=== PATIENT | male | born 1975 | race Caucasian/White ===

== ENCOUNTER 2019-12-24 20:08 | Inpatient (IN) | payer MEDICARE, OTHER ==
[~2019-12-24] VITALS: Ht 177.8 cm; Wt 63.8 kg
[~2019-12-24 20:08] MED LIST: BENZ2TAB5 PO; CRESTOR5 MG PO; HALO100A2 IM
[2019-12-24] MEDS ORDERED: IV NORMAL SALINE 1,000ML 1,000 ML IV SCH (20:14)
[2019-12-24 21:07] LABS: BASO % 0 % (0-3); EOS % 0 % (0-3); HEMATOCRIT 42.1 % (39.0-53.0); HEMOGLOBIN 14.2 g/dL (13.0-17.5); LYMPH # 1.1 x10^3/uL (1.0-4.8); LYMPH % 17 % (24-48); MEAN CORPUSCULAR HEMOGLOBIN 30 pg (25-35); MEAN CORPUSCULAR HGB CONC 34 g/dL (31-37); MEAN CORPUSCULAR VOLUME 90 fL (79-100); MONO # 0.6 x10^3/uL (0.0-1.1); MONO % 9 % (0-9); NEUT # 4.7 x10^3uL (1.8-7.7); NEUT % 73 % (31-73); PLATELET COUNT 71 x10^3/uL (140-400); RED BLOOD COUNT 4.69 x10^6/uL (4.30-5.70); WHITE BLOOD COUNT 6.4 x10^3/uL (4.0-11.0)
[2019-12-24] MEDS ORDERED: DEXTROSE 50% 25 GM / 50ML DISP.SYRIN. IV ONE ×2 (21:18→21:30)
[2019-12-24 21:20] LABS: CREATININE 0.9 mg/dL (0.7-1.3); GFR 91.7; POTASSIUM 3.6 mmol/L (3.5-5.1)
[2019-12-24 21:22] LABS: ALBUMIN 3.7 g/dL (3.4-5.0); DIRECT BILIRUBIN 0.1 mg/dL (0.0-0.2); MAGNESIUM 1.8 mg/dL (1.8-2.4); TOTAL BILIRUBIN 0.2 mg/dL (0.2-1.0); TOTAL PROTEIN 6.8 g/dL (6.4-8.2)
--- NOTE | 2019-12-24 22:23 | PHYS DOC ---
Past History Past Medical History: Schizophrenia, Other Additional Past Medical Histor: HISTOPLASMOSIS Past Surgical History: No Surgical History Additional Smoking Information: CIGARS, VAPES Alcohol Use: None Drug Use: Methamphetamine General Adult EDM: Chief Complaint: ACCIDENTAL INGESTION HPI: HPI: Patient is a [age] year old [sex] who presents with [] Review of Systems: Review of Systems: Constitutional: Denies fever or chills Eyes: Denies change in visual acuity HENT: Denies nasal congestion or sore throat Respiratory: Denies cough or shortness of breath Cardiovascular: Denies chest pain or edema GI: Denies abdominal pain, nausea, vomiting, bloody stools or diarrhea : Denies dysuria Musculoskeletal: Denies back pain or joint pain Integument: Denies rash Neurologic: Denies headache, focal weakness or sensory changes Endocrine: Denies polyuria or polydipsia Lymphatic: Denies swollen glands Psychiatric: Denies depression or anxiety Heart Score: Risk Factors: Risk Factors: DM, Current or recent (<one month) smoker, HTN, HLP, family history of CAD, obesity. Risk Scores: Score 0 - 3: 2.5% MACE over next 6 weeks - Discharge Home Score 4 - 6: 20.3% MACE over next 6 weeks - Admit for Clinical Observation Score 7 - 10: 72.7% MACE over next 6 weeks - Early Invasive Strategies Current Medications: Current Meds: Current Medications Medications (Trade) Dose Ordered Sig/[facility] Start Time Stop Time Status Last Admin Dose Admin Dextrose (Dextrose 50%-Water Syringe) 25 gm 1X ONCE 12/24/19 21:30 12/24/19 21:35 DC 12/24/19 21:20 25 GM Sodium Chloride 1,000 ml @ 1,000 mls/hr Q1H 12/24/19 20:14 12/24/19 21:13 DC 12/24/19 21:26 1,000 MLS/HR Allergies: Allergies: Allergies Coded Allergies Type Severity Reaction Last Updated Verified No Known Drug Allergies 03/03/16 No Physical Exam: PE: Constitutional: Well developed, well nourished, no acute distress, non-toxic appearance. [] HENT: Normocephalic, atraumatic, bilateral external ears normal, oropharynx moist, no oral exudates, nose normal. [] Eyes: PERRLA, EOMI, conjunctiva normal, no discharge. [] Neck: Normal range of motion, no tenderness, supple, no stridor. [] Cardiovascular:Heart rate regular rhythm, no murmur [] Lungs & Thorax: Bilateral breath sounds clear to auscultation [] Abdomen: Bowel sounds normal, soft, no tenderness, no masses, no pulsatile masses. [] Skin: Warm, dry, no erythema, no rash. [] Back: No tenderness, no CVA tenderness. [] Extremities: No tenderness, no cyanosis, no clubbing, ROM intact, no edema. [] Neurologic: Alert and oriented X 3, normal motor function, normal sensory function, no focal deficits noted. [] Psychologic: Affect normal, judgement normal, mood normal. [] Current Patient Data: Labs: Laboratory Tests Test 12/24/19 20:18 12/24/19 20:50 12/24/19 21:16 12/24/19 22:12 Glucose (Fingerstick) 163 mg/dL (70-99) H 47 mg/dL (70-99) L 108 mg/dL (70-99) H White Blood Count 6.4 x10^3/uL (4.0-11.0) Red Blood Count 4.69 x10^6/uL (4.30-5.70) Hemoglobin 14.2 g/dL (13.0-17.5) Hematocrit 42.1 % (39.0-53.0) Mean Corpuscular Volume 90 fL (79-100) Mean Corpuscular Hemoglobin 30 pg (25-35) Mean Corpuscular Hemoglobin Concent 34 g/dL (31-37) Red Cell Distribution Width 14.0 % (11.5-14.5) Platelet Count 71 x10^3/uL (140-400) L Neutrophils (%) (Auto) 73 % (31-73) Lymphocytes (%) (Auto) 17 % (24-48) L Monocytes (%) (Auto) 9 % (0-9) Eosinophils (%) (Auto) 0 % (0-3) Basophils (%) (Auto) 0 % (0-3) Neutrophils # (Auto) 4.7 x10^3uL (1.8-7.7) Lymphocytes # (Auto) 1.1 x10^3/uL (1.0-4.8) Monocytes # (Auto) 0.6 x10^3/uL (0.0-1.1) Eosinophils # (Auto) 0.0 x10^3/uL (0.0-0.7) Basophils # (Auto) 0.0 x10^3/uL (0.0-0.2) Sodium Level 138 mmol/L (136-145) Potassium Level 3.6 mmol/L (3.5-5.1) Chloride Level 101 mmol/L (98-107) Carbon Dioxide Level 28 mmol/L (21-32) Anion Gap 9 (6-14) Blood Urea Nitrogen 10 mg/dL (8-26) Creatinine 0.9 mg/dL (0.7-1.3) Estimated GFR (Cockcroft-Gault) 91.7 Glucose Level 82 mg/dL (70-99) Calcium Level 9.0 mg/dL (8.5-10.1) Magnesium Level 1.8 mg/dL (1.8-2.4) Total Bilirubin 0.2 mg/dL (0.2-1.0) Direct Bilirubin 0.1 mg/dL (0.0-0.2) Aspartate Amino Transferase (AST) 22 U/L (15-37) Alanine Aminotransferase (ALT) 34 U/L (16-63) Alkaline Phosphatase 88 U/L (46-116) Total Protein 6.8 g/dL (6.4-8.2) Albumin 3.7 g/dL (3.4-5.0) Ethyl Alcohol Level < 10 mg/dL (0-10) Vital Signs: Vital Signs Date Time Temp Pulse Resp B/P (MAP) Pulse Ox O2 Delivery O2 Flow Rate FiO2 12/24/19 21:41 65 20 124/63 (83) 97 Room Air 12/24/19 20:10 97.8 EKG: EKG: [] Radiology/Procedures: Radiology/Procedures: [] Course & Med Decision Making: Course & Med Decision Making Pertinent Labs and Imaging studies reviewed. (See chart for details) [] Dragon Disclaimer: Dragon Disclaimer: This electronic medical record was generated, in whole or in part, using a voice recognition dictation system. Departure Departure: Impression: Primary Impression: Hypoglycemia Additional Impression: Accidental overdose Qualified Codes: T50.901A - Poisoning by unspecified drugs, medicaments and biological substances, accidental (unintentional), initial encounter Disposition: ADMITTED INPATIENT Admitting Physician: Patrice Delatorre Condition: IMPROVED Referrals: MARIAH FUCHS (PCP) DULCE DERAS Jr. DO December 24, 2019 22:23
[2019-12-24 22:35] LABS: BILIRUBIN,URINE NEG (NEG); CLARITY,URINE CLEAR; COLOR,URINE YELLOW; GLUCOSE,URINE NEG (NEG); NITRITE,URINE NEG (NEG); UROBILINOGEN,URINE 0.2 mg/dL (0.2 mg/dL)
[2019-12-24 22:36] LABS: BACTERIA,URINE 0 /HPF (0-FEW); RBC,URINE OCC /HPF (0-2); SQUAMOUS EPITHELIAL CELL,UR OCC /LPF; WBC,URINE OCC /HPF (0-4)
[2019-12-24] MEDS ORDERED: IV DEXTROSE 5% - 0.9 % NACL 1,000 ML IV ONE (22:45)
[2019-12-24 23:00] VITALS: BP 143/92
[2019-12-25] MEDS ORDERED: ITRA100C PO (00:11)
[2019-12-25] MEDS ORDERED: LISI10TA2 PO (00:11)
[2019-12-25] MEDS ORDERED: ROSU20TA28 PO (00:11)
[2019-12-25] MEDS ORDERED: DEXTROSE 50% 25 GM / 50ML DISP.SYRIN. IV ONE ×4 (03:04→05:27)
[2019-12-25 06:12] VITALS: BP 137/67
[2019-12-25 06:43] LABS: BASO % 1 % (0-3); EOS % 1 % (0-3); HEMATOCRIT 38.5 % (39.0-53.0); HEMOGLOBIN 12.9 g/dL (13.0-17.5); LYMPH # 0.9 x10^3/uL (1.0-4.8); LYMPH % 29 % (24-48); MEAN CORPUSCULAR HEMOGLOBIN 30 pg (25-35); MEAN CORPUSCULAR HGB CONC 34 g/dL (31-37); MEAN CORPUSCULAR VOLUME 90 fL (79-100); MONO # 0.4 x10^3/uL (0.0-1.1); MONO % 11 % (0-9); NEUT # 1.9 x10^3uL (1.8-7.7); NEUT % 59 % (31-73); PLATELET COUNT 56 x10^3/uL (140-400); RED BLOOD COUNT 4.28 x10^6/uL (4.30-5.70); RED CELL DISTRIBUTION WIDTH 13.6 % (11.5-14.5); WHITE BLOOD COUNT 3.3 x10^3/uL (4.0-11.0)
[2019-12-25 06:47] LABS: CALCIUM 8.6 mg/dL (8.5-10.1); CREATININE 0.8 mg/dL (0.7-1.3); POTASSIUM 3.8 mmol/L (3.5-5.1)
[2019-12-25] MEDS ORDERED: IV DEXTROSE 5 %-0.45 % NACL 1,000 ML IV SCH (08:30)
[2019-12-25] MEDS: DEXTROSE 50% 25 GM / 50ML DISP.SYRIN. IV PRN ×2 (08:49→11:15)
[2019-12-25 12:35] VITALS: BP 120/72
--- NOTE | 2019-12-25 12:45 | HP ---
ADMIT DATE: 12/25/2019 HISTORY OF PRESENT ILLNESS: The patient is a 44-year-old male patient who was brought to the Emergency Room as he accidentally ingested his father's medication that consists of metformin 1000 mg 1 tablet and 3 tablets of glipizide, each is 5 mg total 15 mg as well as Neurontin and apparently by the time he arrived to the Emergency Room, he developed hypoglycemia and was started on D5 normal saline at 100 mL per hour, was admitted to the ICU for close observation. The patient himself seems to be alert, oriented 3. PAST MEDICAL HISTORY: Significant for schizophrenia, histoplasmosis and drug-induced Parkinson's disease. Apparently, he was diagnosed with histoplasmosis about 14 years ago for which she was started on itraconazole and apparently relapsed twice. PAST SURGICAL HISTORY: Significant for brain biopsy as initially the patient's daughter has a brain tumor, but eventually was diagnosed with histoplasmosis. He has multiple lumbar punctures to monitor the response to the antibiotic. ALLERGIES: Medically, he is also known to have hypertension and hyperlipidemia. ALLERGIES: He has no known drug allergies. MEDICATIONS: He is currently on following medications, itraconazole 100 mg p.o. b.i.d., Crestor 20 mg at bedtime, lisinopril 10 mg once a day, haloperidol decanoate 100 mg per 1 mL, intramuscular once a month, benztropine mesylate 2 mg twice a day. FAMILY HISTORY: He has 3 brothers, all healthy. His father is still alive and has type 2 diabetes and also was exposed to Agent [place] in [place]. Mother is still alive and has major depression. SOCIAL HISTORY: He is single. He lives with his father who is also his guardian. He does smoke cigars and vaping, and he does occasionally drinks beer with his father. He has no children and has never been before. He walks without the assistance or assistive devices. PHYSICAL EXAMINATION: GENERAL: On arrival to the Emergency Room, he looked well and was clearly in no apparent respiratory distress. No pallor, jaundice, cyanosis or thyromegaly. No jugular venous distention. No lower limb edema. VITAL SIGNS: Her heart rate was 69, blood pressure was 160/87, temperature was 97.8, respiratory rate 20, and oxygen saturation was 100%. HEAD, EYES, EARS, NOSE AND THROAT: Showed normocephalic, atraumatic. NECK: Supple. HEART: Showed normal first and second heart sounds. No gallop, rub or murmur. CHEST: Clear to auscultation. No crepitation or rhonchi. ABDOMEN: Scaphoid, soft, nontender. NEUROLOGIC: He was awake, alert, responding appropriately. All cranial nerves intact. EXTREMITIES: He moves extremities without difficulty. He apparently ambulates without assistance or assistive devices, although he has abnormal gait. His father said that he was diagnosed with drug-induced Parkinson's disease by his urologist that he follows at [facility] and they actually have cut down his Haldol instead of 100 to 75 mg. LABORATORY DATA: On arrival, his white cell count was 6400, hemoglobin was 14, hematocrit 42, MCV 90 and platelet count of 71,000. His chemistry showed his serum sodium was 138, potassium 3.6, chloride 101, bicarbonate 28, anion gap of 9, BUN 10, creatinine 0.9, estimated GFR was 92 mL per minute. His glucose was 82, calcium was 9, magnesium was 1.8. Total bilirubin, AST, ALT, alkaline phosphatase were normal. His urinalysis was essentially unremarkable. The urine was yellow, clear with a pH of 7, specific gravity of 1.015. The urine otherwise is negative. His toxic screen was negative. ASSESSMENT AND PLAN: In summary, this is a 44-year-old male patient who was admitted with accidental overdose of 50 mg of glipizide and 1000 mg of metformin and gabapentin. He developed hypoglycemia. He continued to have blood sugar drop down and therefore we continued D5 half normal. I spoke with the pharmacist and I will start him also on octreotide 50 mcg IV subcutaneously every 6 hours. We will continue to monitor his blood sugar closely and once his blood sugar stabilized, he can be discharged home. RACHEL MORROW MD DR: GUSTAVO/eleuterio JOB#: [id number] / [id number]
[2019-12-25] MEDS ORDERED: POTASSIUM CLORIDE PO (12:56)
[2019-12-25] MEDS ORDERED: ONDANSETRON PF 4 MG/2 ML VIAL. IVP PRN (13:00)
[2019-12-25] MEDS: IV DEXTROSE 10% 1,000 ML IV SCH (13:04)
[2019-12-25] MEDS: OCTREOTIDE 100 MCG/ML VIAL SQ SCH ×2 (13:05→18:54)
[2019-12-25 14:38] VITALS: BP 133/76
[2019-12-25 18:36] VITALS: BP 136/77
[2019-12-26] VITALS: BP 136/74
[2019-12-26] MEDS: IV DEXTROSE 10% 1,000 ML IV SCH ×2 (00:05→13:12)
[2019-12-26] MEDS: OCTREOTIDE 100 MCG/ML VIAL SQ SCH ×3 (00:05→13:14)
[2019-12-26 06:13] LABS: HEMATOCRIT 38.4 % (39.0-53.0); RED BLOOD COUNT 4.28 x10^6/uL (4.30-5.70); WHITE BLOOD COUNT 3.7 x10^3/uL (4.0-11.0)
[2019-12-26 06:22] LABS: ALBUMIN 3.2 g/dL (3.4-5.0); ALBUMIN/GLOBULIN RATIO 1.1 (1.0-1.7); CALCIUM 8.5 mg/dL (8.5-10.1); GFR 81.2; POTASSIUM 4.4 mmol/L (3.5-5.1); TOTAL BILIRUBIN 0.2 mg/dL (0.2-1.0)
[2019-12-26 10:00] VITALS: BP 108/70
[2019-12-26 11:30] VITALS: BP 129/69
[2019-12-26 17:20] VITALS: BP 151/89
[2019-12-26] MEDS ORDERED: IV DEXTROSE 10% 1,000 ML IV SCH (18:30)
[2019-12-26 20:09] VITALS: BP 157/87
[2019-12-26 22:07] VITALS: BP 141/91
--- NOTE | 2019-12-27 00:14 | PN ---
DATE: SUBJECTIVE: The patient is resting, slightly propped up, sleeping comfortably, in no apparent distress. On questioning him, he denied any complaint. Nursing staff did not voice any concern and stated that he has an uneventful night. His blood sugar seems to be stable. Has had no further episodes of hypoglycemia; however, he continued to be on D10 at 75 mL as well as octreotide. So, I will try and wean him off both of these and see if his blood sugar remains stable. PHYSICAL EXAMINATION: GENERAL: When I examined him this afternoon, he looked well, not jaundiced, cyanosis, or thyromegaly. No jugular venous distension. No limb edema. VITAL SIGNS: His heart rate was 82, blood pressure was 108/70, temperature was 98.3, respiratory rate was 16, and oxygen saturation was 100%. HEAD, EYES, EARS, NOSE AND THROAT: Normocephalic and atraumatic. NECK: Supple. HEART: Showed normal first and second heart sounds with no gallop, rub or murmur. CHEST: Shows central trachea, equal bilateral expansion, air entry, vesicular breath sounds. No crepitation or rhonchi. ABDOMEN: Scaphoid, soft, nontender. NEUROLOGIC: He is awake, alert, responding appropriately. All cranial nerves intact. He moves extremities without difficulty, ambulates without assistance. His intake over the last 24 hours was 1360, output was 1000. LABORATORY DATA: As of this morning, his white cell count was 3700, hemoglobin 13, hematocrit 38, MCV 90, and platelet count was 67,000. His chemistry showed a serum sodium 142, potassium 4.4, chloride 105, bicarbonate 32, anion gap of 5, BUN 5, creatinine 1, estimated GFR was 81 mL per minute. His glucose was 94, calcium was 8.5. Total bilirubin, AST, ALT, alkaline phosphatase were normal. Total protein 6, albumin was 3.2. ASSESSMENT: Severe drug-induced hypoglycemia, resolving, due to accidental intake of glipizide as well as he apparently took 15 mg of glipizide, 1000 mg of metformin. He also took gabapentin 200 mg, simvastatin 20, and alogliptin 25 mg. Other medical problems include histoplasmosis, chronic, diagnosed 14 years ago with brain biopsy, drug-induced Parkinson's disease, schizophrenia, hypertension, and hyperlipidemia. PLAN: My plan is to try to wean him off the D10 as well as octreotide and continue to monitor his blood sugar closely and if he remains stable, we will obviously discharge him home. RACHEL MORROW MD DR: GUSTAVO/eleuterio JOB#: [id number] / [id number]
[2019-12-27 06:37] VITALS: BP 127/81
[2019-12-27 09:40] VITALS: BP 120/76
--- NOTE | 2019-12-27 12:07 | DS ---
DATE OF DISCHARGE: 12/27/2019 HOSPITAL COURSE: The patient is a 44-year-old male patient who was brought to the Emergency Room after he accidentally ingested his father's medications that consisted of metformin 1000 mg 1 tablet and 3 tablets of glipizide each 5 mg and Neurontin. He also took simvastatin 20 mg and alogliptin 25 mg and unfortunately, he developed severe hypoglycemia. Initially, her blood sugar was down to 47, 34, 35 and 39. We did start him on D10 at 75 mL continuous infusion and we started him also on ____ 50 mcg subcutaneously 4 times a day and we did cut down yesterday the D10 to 50 mL and eventually 25 and this morning, his was discontinued altogether. The patient's blood sugar remained stable. The patient is eating and drinking without any problem, has been up and about without difficulty and therefore, a decision was made to discharge him home. PHYSICAL EXAMINATION: GENERAL: When I saw him this morning, he looked well and was clearly in no apparent respiratory distress. No pallor, jaundice, cyanosis or thyromegaly. No jugular venous distention or limb edema. VITAL SIGNS: His heart rate was 66, blood pressure 120/76, temperature was 98.1, respiratory rate was 18 and oxygen saturation was 99%. HEAD, EYES, EARS, NOSE AND THROAT: Showed he is normocephalic, atraumatic. NECK: Supple. HEART: Showed normal first and second heart sounds. No gallop, rub or murmur. CHEST: Clear to auscultation. No crepitation or rhonchi. ABDOMEN: Distended, soft, nontender. NEUROLOGIC: He was awake, alert, responding appropriately. All cranial nerves intact. EXTREMITIES: He moves extremities without difficulty. His blood sugar has been consistently well within normal limits. LABORATORY DATA: His white cell count yesterday was 3700, hemoglobin 13, hematocrit 38, MCV 90 and platelet count of 67,000. His chemistry showed a serum sodium 142, potassium 4.4, chloride 105, bicarbonate 32, anion gap of 5, BUN 5, creatinine 1, estimated GFR was 82 mL per minute. His glucose 94, calcium was 8.5. Total bilirubin, AST, ALT, alkaline phosphatase were normal. Total protein 6, albumin 3.2. DISCHARGE MEDICATIONS: The patient was discharged home to continue on benztropine mesylate 2 mg twice a day, haloperidol decanoate 100 mg per 1 mL intramuscular every month and itraconazole 100 mg twice a day, lisinopril 10 mg once a day and Crestor 20 mg at bedtime. FINAL DISCHARGE DIAGNOSES: 1. Severe hypoglycemia secondary to accidental ingestion of glipizide and alogliptin. 2. The patient has multiple other medical problems including chronic histoplasmosis diagnosed 14 years ago with a brain biopsy. 3. Schizophrenia. 4. Drug-induced Parkinson disease. 5. Hypertension. 6. Hyperlipidemia. RACHEL MORROW MD DR: GUSTAVO/eleuterio JOB#: [id number] / [id number]
== END 2019-12-27 15:20 | disposition home or self-care (01) | DRG 918 ==
LOC: ER 20:08 → ICU 22:28 → OBSVTOIN 12-25 09:34
PROVIDERS: ADMIT Hospitalist; ATTEND Internal Medicine
DX: T38.3X1A Poisoning by insulin and oral hypoglycemic [antidiabetic] drugs, accidental (unintentional), initial encounter (principal); G21.19 Other drug induced secondary parkinsonism; E16.0 Drug-induced hypoglycemia without coma; B39.9 Histoplasmosis, unspecified; E78.5 Hyperlipidemia, unspecified; F17.290 Nicotine dependence, other tobacco product, uncomplicated; F20.9 Schizophrenia, unspecified; I10 Essential (primary) hypertension; T42.6X1A Poisoning by other antiepileptic and sedative-hypnotic drugs, accidental (unintentional), initial encounter; R73.9 Hyperglycemia, unspecified; Y92.89 Other specified places as the place of occurrence of the external cause; Z81.8 Family history of other mental and behavioral disorders; Z83.3 Family history of diabetes mellitus
CPT/HCPCS: 36415; 80048; 80053; 80076; 81001; 82947; 83735; 85025; 85027; 96374; 96375; G0378; G0379; G0480; J2354; J7042; 99285-25; J7030

== ENCOUNTER 2020-06-28 12:41 | Inpatient (IN) | payer MEDICARE, OTHER ==
[~2020-06-28] VITALS: Ht 177.8 cm; Wt 66.6 kg
[~2020-06-28 12:41] MED LIST changes: +ITRA100C PO; +LISI10TA2 PO; +POTASSIUM CLORIDE PO; +ROSU20TA28 PO
[2020-06-28] MEDS ORDERED: IV DEXTROSE 10% 1,000 ML IV ONE (13:00)
--- NOTE | 2020-06-28 13:06 | PHYS DOC ---
Past History Past Medical History: Schizophrenia, Other Additional Past Medical Histor: HISTOPLASMOSIS Past Surgical History: No Surgical History Alcohol Use: None Drug Use: Methamphetamine General Adult EDM: Chief Complaint: OVERDOSE HPI: HPI: The patient is a 44-year-old male patient who was brought to the Emergency Room by his facthere as he accidentally ingested his father's medication that consists of Metformin, Neurontin, Allopurinol, Glizide, Simvastatin and Pioglitazone around 10 am today. Patient has history of mental handicap. He took his morning medications already and then his father noted his morning medications were gone also. The patient is obsessive about taking medications. He has done this in the past by accident. Patient was acting confused so his dad brought him here for evaluation. No report of nausea or vomiting. Review of Systems: Review of Systems: Constitutional: Denies fever or chills Eyes: Denies change in visual acuity HENT: Denies nasal congestion or sore throat Respiratory: Denies cough or shortness of breath Cardiovascular: Denies chest pain or edema GI: Denies abdominal pain, nausea, vomiting, bloody stools or diarrhea : Denies dysuria Musculoskeletal: Denies back pain or joint pain Integument: Denies rash Neurologic: Denies headache, focal weakness or sensory changes Endocrine: Denies polyuria or polydipsia Lymphatic: Denies swollen glands Psychiatric: Denies depression or anxiety Current Medications: Current Meds: Current Medications Medications (Trade) Dose Ordered Sig/Joe Start Time Stop Time Status Last Admin Dose Admin Dextrose 1,000 ml @ 100 mls/hr 1X ONCE 06/28/20 13:00 06/28/20 22:59 Allergies: Allergies: Allergies Coded Allergies Type Severity Reaction Last Updated Verified No Known Drug Allergies 03/03/16 No Physical Exam: PE: Constitutional: Well developed, well nourished, no acute distress, non-toxic appearance. [] HENT: Normocephalic, atraumatic, bilateral external ears normal, oropharynx moist, no oral exudates, nose normal. [] Eyes: PERRLA, EOMI, conjunctiva normal, no discharge. [] Neck: Normal range of motion, no tenderness, supple, no stridor. [] Cardiovascular:Heart rate regular rhythm, no murmur [] Lungs & Thorax: Bilateral breath sounds clear to auscultation [] Abdomen: Bowel sounds normal, soft, no tenderness, no masses, no pulsatile masses. [] Skin: Warm, dry, no erythema, no rash. [] Back: No tenderness, no CVA tenderness. [] Extremities: No tenderness, no cyanosis, no clubbing, ROM intact, no edema. [] Neurologic: awake, alert, normal motor function, normal sensory function, no focal deficits noted. [] Psychologic: Affect normal, judgement normal, mood normal. [] Current Patient Data: Labs: Laboratory Tests Test 06/28/20 12:54 06/28/20 13:26 Glucose (Fingerstick) 52 mg/dL White Blood Count 4.2 x10^3/uL Red Blood Count 4.33 x10^6/uL Hemoglobin 12.9 g/dL Hematocrit 38.9 % Mean Corpuscular Volume 90 fL Mean Corpuscular Hemoglobin 30 pg Mean Corpuscular Hemoglobin Concent 33 g/dL Red Cell Distribution Width 14.7 % Platelet Count 74 x10^3/uL Neutrophils (%) (Auto) 58 % Lymphocytes (%) (Auto) 26 % Monocytes (%) (Auto) 14 % Eosinophils (%) (Auto) 1 % Basophils (%) (Auto) 1 % Neutrophils # (Auto) 2.4 x10^3uL Lymphocytes # (Auto) 1.1 x10^3/uL Monocytes # (Auto) 0.6 x10^3/uL Eosinophils # (Auto) 0.0 x10^3/uL Basophils # (Auto) 0.0 x10^3/uL Sodium Level 140 mmol/L Potassium Level 3.0 mmol/L Chloride Level 104 mmol/L Carbon Dioxide Level 29 mmol/L Anion Gap 7 Blood Urea Nitrogen 8 mg/dL Creatinine 0.9 mg/dL Estimated GFR (Cockcroft-Gault) 91.7 BUN/Creatinine Ratio 9 Glucose Level 60 mg/dL Calcium Level 8.8 mg/dL Magnesium Level 2.0 mg/dL Total Bilirubin 0.3 mg/dL Aspartate Amino Transf (AST/SGOT) 26 U/L Alanine Aminotransferase (ALT/SGPT) 32 U/L Alkaline Phosphatase 92 U/L Total Protein 6.8 g/dL Albumin 3.5 g/dL Albumin/Globulin Ratio 1.1 Salicylates Level < 2.8 mg/dL Salicylate Last Dose Date Unknown Salicylate Last Dose Time Unknown Acetaminophen Level < 2 mcg/mL Acetaminophen Last Dose Date Unknown Acetaminophen Last Dose Time Unknown Ethyl Alcohol Level < 10 mg/dL Current Medications Medications (Trade) Dose Ordered Sig/Joe Route PRN Reason Start Time Stop Time Status Last Admin Dose Admin Dextrose 1,000 ml @ 100 mls/hr 1X ONCE IV 06/28/20 13:00 06/28/20 22:59 06/28/20 14:13 Potassium Chloride (Klor-Con) 40 meq 1X ONCE PO 06/28/20 14:30 06/28/20 14:31 DC Laboratory Tests Test 06/28/20 12:54 Glucose (Fingerstick) 52 mg/dL (70-99) L EKG: EKG: [] Radiology/Procedures: Radiology/Procedures: [] Heart Score: Risk Factors: Risk Factors: DM, Current or recent (<one month) smoker, HTN, HLP, family history of CAD, obesity. Risk Scores: Score 0 - 3: 2.5% MACE over next 6 weeks - Discharge Home Score 4 - 6: 20.3% MACE over next 6 weeks - Admit for Clinical Observation Score 7 - 10: 72.7% MACE over next 6 weeks - Early Invasive Strategies Course & Med Decision Making: Course & Med Decision Making Pertinent Labs and Imaging studies reviewed. (See chart for details) Patient accidentally overdosed long acting diabetic medication. Patient will need to be admitted to the hospital, on D10 DRIP. Discussed with Dr. Chance who agreed to admit patient. Dragmary Disclaimer: Alexx Disclaimer: This electronic medical record was generated, in whole or in part, using a voice recognition dictation system. Departure Departure: Impression: Primary Impression: Drug-induced hypoglycemia Additional Impression: Accidental drug overdose Disposition: ADMITTED INPT THIS HOSP (ERASED) Admitting Physician: Sukhdev Chance Condition: IMPROVED Referrals: MARIAH FUCHS (PCP) NADJA HERNDON DO Jun 28, 2020 13:06
[2020-06-28 13:42] LABS: BASO % 1 % (0-3); EOS % 1 % (0-3); HEMATOCRIT 38.9 % (39.0-53.0); HEMOGLOBIN 12.9 g/dL (13.0-17.5); LYMPH # 1.1 x10^3/uL (1.0-4.8); LYMPH % 26 % (24-48); MEAN CORPUSCULAR HEMOGLOBIN 30 pg (25-35); MEAN CORPUSCULAR HGB CONC 33 g/dL (31-37); MEAN CORPUSCULAR VOLUME 90 fL (79-100); MONO # 0.6 x10^3/uL (0.0-1.1); MONO % 14 % (0-9); NEUT # 2.4 x10^3uL (1.8-7.7); NEUT % 58 % (31-73); PLATELET COUNT 74 x10^3/uL (140-400); RED BLOOD COUNT 4.33 x10^6/uL (4.30-5.70); RED CELL DISTRIBUTION WIDTH 14.7 % (11.5-14.5); WHITE BLOOD COUNT 4.2 x10^3/uL (4.0-11.0)
[2020-06-28 13:54] LABS: ACETAMIN < 2 mcg/mL (10-30); ETHANOL < 10 mg/dL (0-10); SALIC < 2.8 mg/dL (2.8-20.0)
[2020-06-28 13:55] LABS: ALBUMIN 3.5 g/dL (3.4-5.0); ALBUMIN/GLOBULIN RATIO 1.1 (1.0-1.7); CALCIUM 8.8 mg/dL (8.5-10.1); CREATININE 0.9 mg/dL (0.7-1.3); GFR 91.7; TOTAL BILIRUBIN 0.3 mg/dL (0.2-1.0); TOTAL PROTEIN 6.8 g/dL (6.4-8.2)
[2020-06-28] MEDS ORDERED: POTASSIUM CHLORIDE 10 MEQ TABLET.ER. PO ONE (14:30)
[2020-06-28] MEDS ORDERED: ONDANSETRON PF 4 MG/2 ML VIAL. IVP PRN (14:45)
[2020-06-28 15:10] LABS: AMPHETAMINE/METHAMPHETAMINE NEG (NEG); BARBITURATES NEG (NEG); BENZODIAZEPINES NEG (NEG); CANNABINOIDS NEG (NEG); COCAINE NEG (NEG); METHADONE NEG (NEG); OPIATES NEG (NEG); PHENCYCLIDINE NEG (NEG)
[2020-06-28 15:23] LABS: BACTERIA,URINE 0 /HPF (0-FEW); BILIRUBIN,URINE NEG (NEG); CLARITY,URINE CLEAR; COLOR,URINE YELLOW; GLUCOSE,URINE NEG (NEG); NITRITE,URINE NEG (NEG); RBC,URINE 0 /HPF (0-2); UROBILINOGEN,URINE 0.2 mg/dL (0.2 mg/dL); WBC,URINE 0 /HPF (0-4)
[2020-06-28] MEDS ORDERED: DEXTROSE 50% 25 GM / 50ML DISP.SYRIN. IV ONE (17:34)
[2020-06-28] MEDS ORDERED: POTASSIUM CHLORIDE 20 MEQ TABLET.ER. PO ONE (17:45)
[2020-06-28 17:48] VITALS: BP 171/89
[2020-06-28 19:17] VITALS: BP 142/79
--- NOTE | 2020-06-28 19:45 | HP ---
ADMIT DATE: 06/28/2020 HISTORY OF PRESENT ILLNESS: The patient is a 44-year-old male patient who was brought to the Emergency Room by his father as he accidentally ingested his father's medication that consists of metformin, Neurontin, allopurinol, glipizide, simvastatin, pioglitazone around 10:00 in the morning. The patient has a history of mental handicap. He took his morning medication already and then his father noted his morning medications were gone. Also, the patient is obsessive about taking medication. He has done this before. In fact, he was admitted here with similar presentation on 01/02/2020. He was confused, so his dad brought him for evaluation. By the time he was evaluated in the Emergency Room, his blood sugar was 52 and he was started on D10W, was admitted for inpatient management for his oral-hypoglycemic induced hypoglycemia. He himself denied any complaint when I saw him after he arrived to the Emergency Room. PAST MEDICAL HISTORY: Significant for schizophrenia, histoplasmosis and drug-induced Parkinson's disease. Apparently, he was diagnosed with histoplasmosis about 14 years ago for which he was started on itraconazole and apparently relapsed twice. PAST SURGICAL HISTORY: Significant for brain biopsy as initially the patient thought it was a brain tumor, but eventually was diagnosed with histoplasmosis. He has multiple lumbar punctures to monitor his response to antifungal medication. We will give him 50 mL of 50% dextrose and increase the flow rate make it to 150. Medically, he is also known to have hypertension, hyperlipidemia. ALLERGIES: He has no known drug allergies. MEDICATIONS: He is currently on following medications: He is on itraconazole 100 mg p.o. b.i.d., Crestor 20 mg at bedtime, lisinopril 10 mg once a day, haloperidol decanoate 100 mg per 1 mL intramuscular once a month, benztropine mesylate 2 mg twice a day. FAMILY HISTORY: He has 3 brothers, all healthy. His father is still alive and has type 2 diabetes and also was exposed to Agent Wood in [place]. His mother is still alive and has major depression. SOCIAL HISTORY: He is single, he lives with his father who is also his guardian. He does smoke cigars and vaping and he does occasionally drinks beer with his father. He has no children, has never been before. He walks without assistance or assistive device. REVIEW OF SYSTEMS: As per history of present illness. PHYSICAL EXAMINATION: GENERAL: When I examined him on the evening, he looked well and was clearly in no apparent distress. No pallor, jaundice, cyanosis or thyromegaly. No jugular venous distention. No limb edema. VITAL SIGNS: His heart rate was 84, blood pressure 161/96, temperature was 98.8, respiratory rate was 16, and oxygen saturation was 97%. HEAD, EYES, EARS, NOSE AND THROAT: Showed normocephalic, atraumatic. NECK: Supple. HEART: Showed normal first and second heart sounds. No gallop, rub or murmur. CHEST: Central trachea, equal bilateral expansion, air entry, vesicular sounds. No crepitation or rhonchi. ABDOMEN: Scaphoid, soft, nontender. NEUROLOGIC: He is schizophrenic, he was grossly intact without any obvious lateralizing sign. LABORATORY DATA: His lab work on arrival showed a white cell count of 4200, hemoglobin 13, hematocrit 39, MCV 90 and platelet count of 74,000. Serum sodium 140, potassium 3, chloride 104, bicarbonate 29, anion gap of 7, BUN 8, creatinine 0.9, estimated GFR was 92 mL per minute. His glucose was initially 51, 52 went up to 60, 75 and by the time he arrived to the ICU, it dropped down back to 50. His calcium was 8.8, magnesium 2. Total bilirubin, AST, ALT, alkaline phosphatase were normal. Total protein was 6.8, albumin was 3.5. His urinalysis was essentially unremarkable and toxic screen was negative. In summary, this is a 44-year-old male patient who yet again came with hypoglycemia as he accidentally took his father's medication as his father is on glipizide and alogliptin. Patient has multiple other medical problems includin. Histoplasmosis diagnosed 14 years ago with the brain biopsy. 2. Schizophrenia. 3. Drug-induced Parkinson disease. 4. Hypertension. 5. Hyperlipidemia. PLAN: To continue with D10W, continuous infusion and adjust the rate higher up and down to maintain his blood sugar between 75 and 100. He has also hypokalemia for which I will start him on potassium orally. RACHEL MORROW MD DR: GUSTAVO/eleuterio JOB#: [id number] / [id number]
[2020-06-28 22:59] VITALS: BP 131/76
[2020-06-29] VITALS (8 sets, daily range): BP systolic 136–169; BP diastolic 76–96
[2020-06-29] MEDS ORDERED: DEXTROSE 50% 25 GM / 50ML DISP.SYRIN. IV ONE ×2 (04:39→05:00)
[2020-06-29 06:09] LABS: CALCIUM 8.9 mg/dL (8.5-10.1); GFR 81.2; POTASSIUM 3.3 mmol/L (3.5-5.1)
[2020-06-29] MEDS ORDERED: POTASSIUM CHLORIDE 20 MEQ TABLET.ER. PO SCH (08:00)
[2020-06-29] MEDS: LISINOPRIL 10 MG TABLET PO SCH (08:08)
[2020-06-29] MEDS: BENZTROPINE MESYLATE 1 MG TABLET PO SCH ×2 (08:25→20:06)
[2020-06-29] MEDS ORDERED: ITRACONAZOLE 100 MG CAPSULE PO SCH ×2 (09:00→10:45)
[2020-06-29] MEDS ORDERED: PALI1.5T PO (10:48)
[2020-06-29] MEDS: NON FORMULARY ITEM (Paliperidone (Invega) 1 TAB) PO SCH (11:13)
[2020-06-29] MEDS: IV DEXTROSE 10% 1,000 ML IV SCH ×3 (11:15→20:06)
[2020-06-29] MEDS: ITRACONAZOLE 100 MG CAPSULE PO SCH ×2 (11:15→20:06)
[2020-06-29] MEDS: POTASSIUM CHLORIDE 20 MEQ TABLET.ER. PO SCH ×3 (14:00→20:06)
[2020-06-29] MEDS: NICOTINE 21MG PATCH. TD SCH (18:03)
[2020-06-29] MEDS ORDERED: ATORVASTATIN CALCIUM 20 MG TABLET PO SCH (21:00)
--- NOTE | 2020-06-29 23:24 | PN ---
DATE: 06/29/2020 SUBJECTIVE: The patient is resting, slightly propped up in bed, in no apparent distress, awake, alert. Denied any complaint. The nursing staff did not voice any concern. His blood sugar has been maintained within the normal range with D10W of around 150 mg/dL. PHYSICAL EXAMINATION: GENERAL: On examining him, he looked well and was clearly in no apparent respiratory distress. No pallor, jaundice, cyanosis or thyromegaly. No jugular venous distention. No limb edema. VITAL SIGNS: His heart rate was 63, blood pressure was 146/87, temperature was 98.1, respiratory rate was 18 and oxygen saturation was 98%. The rest of clinical exam is stable. LABORATORY DATA: His lab work this morning showed a serum sodium 144, potassium 3.3, chloride 104, bicarbonate 30, anion gap of 10, BUN 6, creatinine 1, estimated GFR was 81 mL per minute. His glucose was 59, calcium was 8.9. As of yesterday, his white cell count was 4200, hemoglobin 13, hematocrit 39, MCV 90 and platelet count of 74,000. ASSESSMENT: 1. Drug-induced hypoglycemia, as he accidentally took his father's medication including glipizide, metformin, and alogliptin. 2. Histoplasmosis diagnosed 14 years ago with brain biopsy. 3. Schizoaffective disorder. 4. Drug-induced Parkinson's disease. 5. Hypertension. 6. Hyperlipidemia. PLAN: To continue with D10W continuously. He can check his blood sugar every 2 hours and attempt to titrate it down slowly to see if we can wean him off the IV fluid. RACHEL MORROW MD DR: GUSTAVO/eleuterio JOB#: [id number] / [id number]
[2020-06-30 02:15] VITALS: BP 145/84
[2020-06-30] MEDS: IV DEXTROSE 10% 1,000 ML IV SCH (05:02)
[2020-06-30 05:25] VITALS: BP 139/99
[2020-06-30 06:24] LABS: CREATININE 0.9 mg/dL (0.7-1.3); GFR 91.7; POTASSIUM 3.5 mmol/L (3.5-5.1)
[2020-06-30 10:14] VITALS: BP 124/73
[2020-06-30] MEDS: POTASSIUM CHLORIDE 20 MEQ TABLET.ER. PO SCH ×2 (12:02→14:00)
[2020-06-30] MEDS: LISINOPRIL 10 MG TABLET PO SCH (12:12)
[2020-06-30] MEDS: NON FORMULARY ITEM (Paliperidone (Invega) 1 TAB) PO SCH (12:21)
[2020-06-30] MEDS: BENZTROPINE MESYLATE 1 MG TABLET PO SCH (12:22)
[2020-06-30] MEDS: ITRACONAZOLE 100 MG CAPSULE PO SCH (12:24)
[2020-06-30] MEDS: NICOTINE 21MG PATCH. TD SCH (12:25)
[2020-06-30 15:00] VITALS: BP 122/68
--- NOTE | 2020-06-30 23:02 | DS ---
DATE OF DISCHARGE: 06/30/2020 HOSPITAL COURSE: The patient was admitted another time with another episode of drug-induced hypoglycemia as he has taken his father's oral hypoglycemic agent and was started on D10W continuous infusion, and it took about 2 days before eventually we stopped the D10 and his blood sugar has remained stable within normal range without the D5W. The nursing staff, however, did not voice any concern. The patient himself did not offer any complaint and has been doing very well. PHYSICAL EXAMINATION: GENERAL: When I examined him, he looked well and was clearly in no apparent respiratory distress. No pallor, jaundice, cyanosis or thyromegaly. No jugular venous distention. No limb edema. VITAL SIGNS: His heart rate was 63, blood pressure was 124/73, temperature 97.6, respiratory rate 16, and oxygen saturation was 99%. HEAD, EYES, EARS, NOSE AND THROAT: Showed normocephalic, atraumatic. NECK: Supple. HEART: Showed normal first and second heart sounds. No gallop, rub or murmur. CHEST: Clear to auscultation. No crepitation or rhonchi. ABDOMEN: Scaphoid, soft, nontender. NEUROLOGIC: He was grossly intact. The patient is able to ambulate without assistance or assistive devices. His intake was 1400, output was 1050. LABORATORY DATA: This morning showed a serum sodium 143, potassium 3.5, chloride 106, bicarbonate 30, anion gap of 7, BUN 5, creatinine 0.9, estimated GFR was 91 mL per minute. His glucose was 96 and calcium was 9. DISCHARGE MEDICATIONS: The patient was discharged home to continue on his benztropine mesylate 2 mg twice a day, haloperidol decanoate 100 mg per 1 mL intramuscular every month, itraconazole 100 mg twice a day, lisinopril 10 mg once a day, Invega 1.5 mg tablet daily, and Crestor 20 mg at bedtime. FINAL DISCHARGE DIAGNOSES: 1. Drug-induced hypoglycemia as he accidentally took his father's medication that include glipizide, metformin, and alogliptin. 2. Histoplasmosis diagnosed 14 years ago with brain biopsy for which he is on itraconazole 100 mg twice a day. 3. Schizoaffective disorder. 4. Drug-induced Parkinson's disease. 5. Hypertension. 6. Hyperlipidemia. RACHEL MORROW MD DR: Felecia JOB#: [id number] / [id number]
== END 2020-06-30 15:45 | disposition home or self-care (01) | DRG 918 ==
LOC: ER 12:41 → ICU 14:35
PROVIDERS: ADMIT Internal Medicine; ATTEND Internal Medicine
DX: T38.3X1A Poisoning by insulin and oral hypoglycemic [antidiabetic] drugs, accidental (unintentional), initial encounter (principal); G21.19 Other drug induced secondary parkinsonism; E16.0 Drug-induced hypoglycemia without coma; F25.9 Schizoaffective disorder, unspecified; I10 Essential (primary) hypertension; B39.9 Histoplasmosis, unspecified; E78.5 Hyperlipidemia, unspecified; F17.290 Nicotine dependence, other tobacco product, uncomplicated; F15.90 Other stimulant use, unspecified, uncomplicated; Z81.8 Family history of other mental and behavioral disorders; Z83.3 Family history of diabetes mellitus; Y92.89 Other specified places as the place of occurrence of the external cause; E87.6 Hypokalemia
CPT/HCPCS: 36415; 80048; 80053; 80307; 80329; 81001; 82947; 83735; 85025; 96365; 96366; G0480; 99285-25

== ENCOUNTER 2021-01-23 11:11 | Emergency (ER) | payer MEDICARE, OTHER ==
[~2021-01-23] VITALS: Ht 177.8 cm; Wt 66.3 kg
[~2021-01-23 11:11] MED LIST changes: +LISI10TA16 PO; -LISI10TA2 PO; +PALI1.5T PO
[2021-01-23 11:26] VITALS: BP 190/95
[2021-01-23 12:15] LABS: BASO % 1 % (0-3); EOS % 1 % (0-3); HEMATOCRIT 38.2 % (39.0-53.0); HEMOGLOBIN 12.8 g/dL (13.0-17.5); LYMPH # 0.9 x10^3/uL (1.0-4.8); LYMPH % 21 % (24-48); MEAN CORPUSCULAR HEMOGLOBIN 30 pg (25-35); MEAN CORPUSCULAR HGB CONC 34 g/dL (31-37); MEAN CORPUSCULAR VOLUME 89 fL (79-100); MONO # 0.5 x10^3/uL (0.0-1.1); MONO % 10 % (0-9); NEUT # 2.9 x10^3uL (1.8-7.7); NEUT % 68 % (31-73); PLATELET COUNT 72 x10^3/uL (140-400); RED CELL DISTRIBUTION WIDTH 14.8 % (11.5-14.5); WHITE BLOOD COUNT 4.4 x10^3/uL (4.0-11.0)
[2021-01-23 12:21] LABS: CALCIUM 8.6 mg/dL (8.5-10.1); CREATININE 0.9 mg/dL (0.7-1.3); GFR 91.3; POTASSIUM 3.1 mmol/L (3.5-5.1)
--- NOTE | 2021-01-23 12:22 | PHYS DOC ---
Past History Past Medical History: No Pertinent History Additional Past Medical Histor: HISTOPLASMOSIS Past Surgical History: No Surgical History Alcohol Use: None Drug Use: Methamphetamine General Adult EDM: Chief Complaint: MECHANICAL FALL HPI: HPI: 45-year-old male presents with his caregiver after mechanical fall. The patient has diminished mental capacity. He tells me he does not remember falling today. He has an abrasion and hematoma on his forehead. The caregiver that accompanies him was not there for the accident, but took report. The story was that the patient was in his room trying to change clothes when he fell over and struck his head against the door jam. Bleeding has been controlled. Patient denies dizziness or any other complaints. The caregiver is concerned because she felt like he has been off balance and having difficulty ambulating. He has also been repeating himself much more than usual. Review of Systems: Review of Systems: Constitutional: Denies fever or chills Eyes: Denies change in visual acuity HENT: Denies nasal congestion or sore throat Respiratory: Denies cough or shortness of breath Cardiovascular: Denies chest pain or edema GI: Denies abdominal pain, nausea, vomiting, bloody stools or diarrhea : Denies dysuria Musculoskeletal: Denies back pain or joint pain Integument: Abrasion left forehead Neurologic: Head injury. Denies headache, focal weakness or sensory changes Endocrine: Denies polyuria or polydipsia Lymphatic: Denies swollen glands Psychiatric: Denies depression or anxiety Allergies: Allergies: Allergies Coded Allergies Type Severity Reaction Last Updated Verified No Known Drug Allergies 03/03/16 No Physical Exam: PE: Constitutional: Well developed, well nourished, no acute distress, non-toxic appearance. [] HENT: Normocephalic, 2 cm x 3 cm hematoma of the left forehead, bilateral external ears normal, oropharynx moist, no oral exudates, nose normal. [] Eyes: PERRLA, EOMI, conjunctiva normal, no discharge. [] Neck: Normal range of motion, no tenderness, supple, no stridor. [] Cardiovascular: Heart rate regular rhythm, no murmur [] Lungs & Thorax: Bilateral breath sounds clear to auscultation [] Abdomen: Bowel sounds normal, soft, no tenderness, no masses, no pulsatile masses. [] Skin: Abrasion of the left forehead, bleeding controlled. [] Back: No tenderness, no CVA tenderness. [] Extremities: No tenderness, no cyanosis, no clubbing, ROM intact, no edema. [] Neurologic: Alert, normal motor function, normal sensory function, no focal deficits noted. [] Psychologic: Affect normal, judgement normal, mood normal. [] Current Patient Data: Vital Signs: Vital Signs Date Time Temp Pulse Resp B/P (MAP) Pulse Ox O2 Delivery O2 Flow Rate FiO2 01/23/21 11:26 98.2 61 20 190/95 (126) 97 Room Air EKG: EKG: [] Radiology/Procedures: Radiology/Procedures: [] Impressions: EXAM: CT head without contrast INDICATION: Fall, gait disturbance, history of head trauma and bleed COMPARISON: CT head 02/24/2016 TECHNIQUE: Axial CT imaging through the head without intravenous contrast. One or more of the following individualized dose reduction techniques were utilized for this examination: 1. Automated exposure control 2. Adjustment of the mA and/or kV according to patient size 3. Use of iterative reconstruction technique. FINDINGS: A calcified mass or region of calcifications in the right frontal lobe, predominantly along cortex, measuring 3.0 x 1.5 cm is unchanged from 2017. This is deep a right frontal craniotomy. There is no new intracranial mass, acute infarct, or hemorrhage. Ventricles and sulci are mildly enlarged, unchanged. There are small old lacunar infarcts in the bilateral basal ganglia. The v isualized paranasal sinuses and mastoid air cells are clear. Globes and orbits are intact. There is soft tissue swelling along the left forehead. IMPRESSION: 1. No acute intracranial abnormality. 2. Unchanged calcified mass or region of calcifications measuring approximately 3.0 x 1.5 cm in the right frontal lobe, unchanged from 2016. Electronically signed by: Sayra Nowak MD (01/23/2021 12:26 PM) [id number] DICTATED AND SIGNED BY: SAYRA NOWAK MD DATE: 01/23/21 1214 CC: ANDI SUAREZ DO; MARIAH FUCHS [place] ~MTH0 0 Heart Score: C/O Chest Pain: N/A Risk Factors: Risk Factors: DM, Current or recent (<one month) smoker, HTN, HLP, family history of CAD, obesity. Risk Scores: Score 0 - 3: 2.5% MACE over next 6 weeks - Discharge Home Score 4 - 6: 20.3% MACE over next 6 weeks - Admit for Clinical Observation Score 7 - 10: 72.7% MACE over next 6 weeks - Early Invasive Strategies Course & Med Decision Making: Course & Med Decision Making Pertinent Labs and Imaging studies reviewed. (See chart for details) The patient's labs are unremarkable except for mild anemia which is similar to previous labs in the chart and a slightly low potassium of 3.1. We will give him 40 mEq in the ED. His head CT is negative for acute findings. There are ch ronic findings. See official read for more details. His urinalysis is negative for infection. The patient is a bit unsteady on his gait. I spoke with his father who is his legal guardian and he explained that the patient is on medications that cause extrapyramidal symptoms. He is unsteady at baseline. It is hard to determine if he is much different today than previous days. His guardian is reassured by the patient's negative results and is comfortable with the patient going home. I believe that this is reasonable as he has 24-hour care. He is stable for discharge at this time. [] Dragon Disclaimer: Dragon Disclaimer: This electronic medical record was generated, in whole or in part, using a voice recognition dictation system. Departure Departure: Impression: Primary Impression: Fall from slip, trip, or stumble Qualified Codes: W01.0XXA - Fall on same level from slipping, tripping and stumbling without subsequent striking against object, initial encounter Additional Impression: Abrasion of forehead Qualified Codes: S00.81XA - Abrasion of other part of head, initial encounter Disposition: 01 HOME / SELF CARE / HOMELESS Condition: STABLE Referrals: MARIAH FUCHS (PCP) Patient Instructions: Fall Prevention and Home Safety, [id number] ANDI SUAREZ DO Jan 23, 2021 12:22
[2021-01-23 12:25] LABS: BILIRUBIN,URINE NEG (NEG); CLARITY,URINE CLEAR; COLOR,URINE STRAW; GLUCOSE,URINE NEG (NEG); NITRITE,URINE NEG (NEG); RBC,URINE 0 /HPF (0-2); UROBILINOGEN,URINE 0.2 mg/dL (0.2 mg/dL); WBC,URINE 0 /HPF (0-4)
[2021-01-23 12:26] LABS: BACTERIA,URINE 0 /HPF (0-FEW); SQUAMOUS EPITHELIAL CELL,UR OCC /LPF
[2021-01-23 12:26] LABS: ALBUMIN 3.6 g/dL (3.4-5.0); ALBUMIN/GLOBULIN RATIO 1.1 (1.0-1.7); TOTAL BILIRUBIN 0.6 mg/dL (0.2-1.0); TOTAL PROTEIN 6.8 g/dL (6.4-8.2)
--- NOTE | 2021-01-23 12:28 | RAD ---
EXAM: CT head without contrast INDICATION: Fall, gait disturbance, history of head trauma and bleed COMPARISON: CT head 02/24/2016 TECHNIQUE: Axial CT imaging through the head without intravenous contrast. One or more of the following individualized dose reduction techniques were utilized for this examinat ion: 1. Automated exposure control 2. Adjustment of the mA and/or kV according to patient size 3. Use of iterative reconstruction technique. FINDINGS: A calcified mass or region of calcifications in the right frontal lobe, predominantly along cortex, m easuring 3.0 x 1.5 cm is unchanged from 2017. This is deep a right frontal craniotomy. There is no ne w intracranial mass, acute infarct, or hemorrhage. Ventricles and sulci are mildly enlarged, unchange d. There are small old lacunar infarcts in the bilateral basal ganglia. The visualized paranasal sinu ses and mastoid air cells are clear. Globes and orbits are intact. There is soft tissue swelling leanna g the left forehead. IMPRESSION: 1. No acute intracranial abnormality. 2. Unchanged calcified mass or region of calcifications measuring approximately 3.0 x 1.5 cm in the r ight frontal lobe, unchanged from 2016. Electronically signed by: Sayra Nowak MD (01/23/2021 12:26 PM) [id number]
[2021-01-23] MEDS ORDERED: POTASSIUM CHLORIDE 20 MEQ TABLET.ER. PO ONE (12:45)
== END 2021-01-23 15:14 | disposition home or self-care (01) ==
LOC: ER 11:11
DX: S00.83XA Contusion of other part of head, initial encounter (principal); F15.10 Other stimulant abuse, uncomplicated; W18.09XA Striking against other object with subsequent fall, initial encounter; Y93.89 Activity, other specified; Y92.89 Other specified places as the place of occurrence of the external cause; Y99.8 Other external cause status
CPT/HCPCS: 36415; 70450; 80053; 81001; 85025; 99284-25

== ENCOUNTER 2021-02-01 17:26 | Emergency (ER) | payer MEDICARE, OTHER ==
[~2021-02-01] VITALS: Ht 177.8 cm; Wt 66.3 kg
[2021-02-01] MEDS ORDERED: DIPH,PERTUSS(ACELL),TET VAC/PF 0.5 ML SYRINGE. VAX IM ONE ×2 (18:18→18:30)
--- NOTE | 2021-02-01 19:03 | PHYS DOC ---
Past History Past Medical History: High Cholesterol, Schizophrenia, Other Additional Past Medical Histor: HISTOPLASMOSIS (LEXY CARO APRN) Past Surgical History: No Surgical History (LEXY CARO APRN) Alcohol Use: None Drug Use: Methamphetamine (LEXY CARO APRN) Adult General Chief Complaint Chief Complaint: LACERATION/AVULSION HPI HPI Patient is a 45-year-old male presents emergency department with complaint of a laceration over his left brow. Patient has a history of schizophrenia and histoplasmosis which medications has led him to the diagnosis of EPS in which he requires a walker to ambulate. Patient stated he stumbled and fell forward hitting his brow on the floor causing a laceration. Denies loss of consciousness. Patient states his tetanus status patient was greater than 5 years ago. Patient denies any other physical complaints or physical concerns. Patient reports his pain is 0 unless his laceration is palpated. (LEXY CARO APRN) Review of Systems Review of Systems 14 body systems of review of systems have been reviewed. See HPI for pertinent positives and negative responses, otherwise all other systems are negative, nonpertinent or noncontributory. (LEXY CARO APRN) Current Medications Current Medications Current Medications Medications (Trade) Dose Ordered Sig/Joe Start Time Stop Time Status Last Admin Dose Admin Diphtheria/ Pertussis/Tetanus Vacc (ADACEL TDap SYRINGE) 0.5 ml STK-MED ONCE 02/01/21 18:18 02/01/21 18:18 DC (LEXY CARO APRN) Allergies Allergies Allergies Coded Allergies Type Severity Reaction Last Updated Verified No Known Drug Allergies 03/03/16 No (LEXY CARO APRN) Physical Exam Physical Exam Constitutional: Well developed, well nourished, no acute distress, non-toxic appearance. 45-year-old male in no apparent distress. HENT: Normocephalic, atraumatic, bilateral external ears normal, oropharynx moist, no oral exudates, nose normal. Patient has 2.3 cm laceration over the left brow, bleeding controlled, full skin thickness into adipose tissue, no muscle tissue appreciated. Contusion around laceration site. No other depressions or contusions appreciated of the head or neck. Eyes: PERRLA, EOMI, conjunctiva normal, no discharge. Neck: Normal range of motion, no tenderness, supple, no stridor. Cardiovascular:Heart rate regular rhythm, no murmur Lungs & Thorax: Bilateral breath sounds clear to auscultation Abdomen: Bowel sounds normal, soft, no tenderness, no masses, no pulsatile masses. Skin: Warm, dry, no erythema, no rash. See HEENT note for focused skin assessment. Back: No tenderness, no CVA tenderness. Extremities: No tenderness, no cyanosis, no clubbing, ROM intact, no edema. Neurologic: Alert and oriented X 3, normal motor function, normal sensory function, no focal deficits noted. Psychologic: Affect normal, judgement normal, mood normal. (LEXY CARO APRN) Current Patient Data Vital Signs Vital Signs Date Time Temp Pulse Resp B/P (MAP) Pulse Ox O2 Delivery O2 Flow Rate FiO2 02/01/21 17:39 98.4 76 20 192/97 (128) 97 Room Air (LEXY CARO APRN) EKG EKG [] (LEXY CARO APRN) Radiology/Procedures Radiology/Procedures [] (LEXY CARO APRN) Heart Score C/O Chest Pain: No Risk Factors: Risk Factors: DM, Current or recent (<one month) smoker, HTN, HLP, family history of CAD, obesity. Risk Scores: Risk Factors: DM, Current or recent (<one month) smoker, HTN, HLP, family history of CAD, obesity. (LEXY CARO APRN) Course & Med Decision Making Course & Med Decision Making Pertinent Labs and Imaging studies reviewed. (See chart for details) 45-year-old male, vital signs reviewed, presents emergency department with chief complaint of left brow laceration after a stumble and fall at home. Patient did not lose consciousness, imaging not indicated, physical examination consistent with patient's explanation of events. The patient's tetanus immunization was brought up-to-date today in the emergency department with Adacel/Tdap. See laceration repair note. Both patient and patient's father gave verbal understanding of glued laceration care, follow-up with PCP this week for reexamination of laceration repair site, return to ER precautions or concerns, patient was discharged home without incident. (LEXY CARO APRN) Course & Med Decision Making Did not see or evaluate patient. Agree with FIELD SERVICE TECHNICIAN's work-up and disposition per note. (JUVENAL REYES MD) Dragon Disclaimer Dragon Disclaimer This electronic medical record was generated, in whole or in part, using a voice recognition dictation system. (LEXY CARO APRN) Laceration Repair Lac Repair Indication: Left brow laceration Procedure: The patient was placed in the appropriate position and anesthesia around the laceration was not indicated. The area was then povidone iodine and rinsed with normal saline. The laceration was explored for foreign bodies, there were no foreign bodies, the laceration was closed with Dermabond glue. The laceration repair site was not dressed related to Dermabond glue. Total repaired wound length: 2.4 cm. Other Items: No other items. The patient tolerated the procedure well. Complications: There were no complications. (LEXY CARO APRN) Departure Departure: Impression: Primary Impression: Facial laceration Additional Impression: Need for Tdap vaccination Disposition: HOME / SELF CARE / HOMELESS Condition: GOOD Referrals: MARIAH FUCHS (PCP) Patient Instructions: Tissue Adhesive Wound Care Additional Instructions: You were seen today in the emergency department for a laceration over your left brow. You required a tetanus immunization today. Your tetanus status has been brought up-to-date today in the emergency department with a medication called Adacel/Tdap. Please theron your immunization records accordingly. Your laceration was glued with tissue adhesive. Do not apply any ointments or creams or oils over the glued site. Be tissue adhesive glue should start to peel off after 5 days. It is not imperative that it comes off on the fifth day just sometime after 5 days it will start peeling off and this is okay. Please follow-up with your primary care provider this week for a wound reevaluation. Please return to the emergency department for worsening symptoms or other concerns. EMERGENCY DEPARTMENT GENERAL DISCHARGE INSTRUCTIONS Thank you for coming to [facility] (ED) today and trusting us with you care. We trust that you had a positivie experience in our Emergency Department. If you wish to speak to the department management, you may call the director at [phone]. YOUR FOLLOW UP INSTRUCTIONS ARE FOLLOWS: 1. Do you have a private Doctor? If you do not have a private doctor, please ask for a resource list of physicians or clinics that may be able to assist you with follow up care. 2. The Emergency Physician has interpreted your x-rays. The X-Ray specialist will also review them. If there is a change in the findings, you will be notified in 48 hours when at all possible. 3. A lab test or culture has been done, your results will be reviewed and you will be notified if you need a change in treatment. ADDITIONAL INSTRUCTIONS AND INFORMATION: 1. Your care today has been supervised by a physician who is specially trained in emergency care. Many problems require more than one evaluation for a complete diagnosis and treatment. We recommend that you schedule your follow up appointment as recommended to ensure complete treatment of you illness or injury. If you are unable to obtain follow up care and continue to have a problem, or if your condition worsens, we recommend that you return to the ED. 2. We are not able to safely determine your condition over the phone nor are we able to give sound medical advice over the phone. For these safety reasons, if you call for medical advice we will ask you to come to the ED for further evaluation. 3. If you have any questions regarding these discharge instructions please call the ED at [phone]. SAFETY INFORMATION: In the interest of safety, wellness, and injury prevention; we encourage you to wear your sealbelt, if you smoke; quite smoking, and we encourage family to use a protective helmet for bicycling and other sporting events that present an increased risk for head injury. IF YOUR SYMPTOMS WORSEN OR NEW SYMPTOMS DEVELOP, OR YOU HAVE CONCERNS ABOUT YOUR CONDITION; OR IF YOUR CONDITION WORSENS WHILE YOU ARE WAITING FOR YOUR FOLLOW UP APPOINTMENT; EITHER CONTACT YOUR PRIMARY CARE DOCTOR, THE PHYSICIAN WHOSE NAME AND NUMBER YOU WERE GIVEN, OR RETURN TO THE ED IMMEDIATELY. Problem Qualifiers Primary Impression: Facial laceration Encounter type: initial encounter Qualified Codes: S01.81XA - Laceration without foreign body of other part of head, initial encounter LEXY CARO APRN Feb 01, 2021 19:03 JUVENAL REYES MD Feb 01, 2021 22:32
[2021-02-01 19:40] VITALS: BP 166/100
== END 2021-02-01 19:45 | disposition home or self-care (01) ==
LOC: ER 17:26
DX: S01.81XA Laceration without foreign body of other part of head, initial encounter (principal); E78.5 Hyperlipidemia, unspecified; F15.10 Other stimulant abuse, uncomplicated; Z23 Encounter for immunization; W18.09XA Striking against other object with subsequent fall, initial encounter; Y93.89 Activity, other specified; Y92.89 Other specified places as the place of occurrence of the external cause; Y99.8 Other external cause status
CPT/HCPCS: 12011; 90471; 90715; 99283-25